=== PATIENT | female | born 1945 | race Caucasian/White ===

== ENCOUNTER → 2018-02-15 | Outpatient (CLI) | payer OTHER ==
[~2018-02-15] MED LIST: AMOCLA875 PO; ASPI81EC PO; ATEN50 PO; FURO20 PO; POTCHL10ER PO; VALS80 PO; [UNRECOGNIZED DRUG - OTHER]
== END | disposition home or self-care (01) ==
LOC: LAB SHORT 08:42 → PLD 08:42
DX: D48.5 Neoplasm of uncertain behavior of skin (principal)
CPT/HCPCS: 88305

== ENCOUNTER 2019-03-28 06:50 | Day surgery (SDC) | payer OTHER ==
[~2019-03-28] VITALS: Ht 167.6 cm; Wt 99.4 kg
[~2019-03-28 06:50] MED LIST changes: +Amaryl1 MG PO; +Aspir 8181 MG PO; +LOSA50 PO; +METF500 PO; +POTA10T PO
--- NOTE | 2019-03-28 07:45 | NUR ---
03/28/19 0745 Tressa Narayan PATIENT EXPRESSED CONCERN THAT PRIOR CATARACT SURGERY HER EYE STAYED DIALATED AND THE DOCTOR DID A "REVERSAL". SPOKE TO DR HERNANDEZ IN THE OR AND SHE STATES THERE IS NO REVERSAL AND SHE ORDERS NORMAL ADMITTING PROCEDURE WITH DROPS ORDERED.
== END 2019-03-28 09:24 | disposition home or self-care (01) ==
LOC: ORSCSDS 06:50
PROVIDERS: Ophthalmology
PROC: 08RK3JZ Replacement of Left Lens with Synthetic Substitute, Percutaneous Approach (ICD-10-PCS; principal; 2019-03-28 08:30)
DX: H25.12 Age-related nuclear cataract, left eye (principal); E11.36 Type 2 diabetes mellitus with diabetic cataract; I10 Essential (primary) hypertension; Z79.82 Long term (current) use of aspirin; Z79.84 Long term (current) use of oral hypoglycemic drugs; Z79.899 Other long term (current) drug therapy
CPT/HCPCS: 82947; J0360; J2250; J3010; V2632

== ENCOUNTER → 2021-05-15 | Outpatient (CLI) | payer OTHER | END | disposition home or self-care (01) | LOC: LAB 15:30 → LAB SHORT 15:30 | DX: R35.0 Frequency of micturition (principal) | CPT/HCPCS: 87086 ==

== ENCOUNTER → 2021-11-17 | Outpatient (CLI) | payer OTHER | END | disposition home or self-care (01) | LOC: LAB SHORT 17:30 → LAB 17:30 | DX: E11.21 Type 2 diabetes mellitus with diabetic nephropathy (principal); R30.0 Dysuria | CPT/HCPCS: 82043; 87077; 87086; 87186 ==